=== PATIENT | female | born 1960 | race Caucasian/White ===

== ENCOUNTER 2016-07-12 15:32 | Outpatient (CLI) | payer OTHER ==
--- NOTE | 2016-07-13 17:15 | Mammography Report ---
DIGITAL SCREENING MAMMOGRAM: 07/12/2016 CLINICAL INDICATION: A 56-year-old with history of late childbearing, family history of breast cance r for screening. COMPARISON: 09/2014, 05/2013, 04/2012, 04/2010, 09/2008. TECHNIQUE: Routine CC and MLO projections were obtained of the breasts. FINDINGS: Parenchymal tissue within both breasts is extremely dense, which lowers the sensitivity of mammography; however, there are no dominant masses, suspicious microcalcifications, or secondary sig ns of malignancy. In comparison to the previous studies, there are no significant changes. IMPRESSION: No mammographic evidence of malignancy. PLAN: Screening mammography is recommended annually. BI-RADS category 1 - negative. STANDARD QUALIFYING STATEMENTS 1. This examination was reviewed with the aid of Computed-Aided Detection (CAD). 2. A negative or benign imaging report should not delay biopsy if clinically suspicious findings are present. Consider surgical consultation if warranted. More than 5% of cancers are not identified by i maging. 3. Dense breasts may obscure an underlying neoplasm. JOB #: [id number] EXT JOB #:[id number]
== END 2016-07-12 15:33 | disposition home or self-care (01) ==
LOC: DI 15:32
PROVIDERS: ATTEND Family Medicine
DX: Z12.31 Encounter for screening mammogram for malignant neoplasm of breast (principal); Z80.3 Family history of malignant neoplasm of breast
CPT/HCPCS: 77067

== ENCOUNTER 2017-03-30 10:11 | Outpatient (CLI) | payer OTHER ==
--- NOTE | 2017-03-31 10:03 | DEXA Report ---
DEXA SCAN: 03/30/2017 CLINICAL INDICATION: Osteopenia. TECHNIQUE: Dual energy x-ray absorptiometry (DXA) was performed on a [employer] system. Regions measured are the AP spine, femoral neck, and, if needed, forearm. COMPARISON: None. In accordance with the International Society for Clinical Densitometry (ISCD) guidelines, data from previous exams may be reanalyzed using current recommendations and techniques. This is done to allow a more accurate basis for comparison with the current study. FINDINGS LUMBAR SPINE DATA: REGION BMD (g/cm/cm) T-SCORE Z-SCORE L1 0.901 -1.9 -0.5 L2 1.000 -1.7 -0.3 L3 1.185 -0.1 1.3 L4 1.190 -0.1 1.3 TOTAL 1.078 -0.9 0.5 NOTE: All evaluable vertebrae are used for classification. HIP DATA: REGION BMD (g/cm/cm) T-SCORE Z-SCORE Neck 0.754 -2.0 -0.7 TOTAL 0.814 -1.5 -0.5 NOTE: The femoral neck or total proximal femur, whichever is lowest, is used for classification. IMPRESSION THE WHO CLASSIFICATION BASED ON THE INTERNATIONAL REFERENCE STANDARD: OSTEOPENIA. FRACTURE RISK: INCREASED. RECOMMENDATION: Patients with diagnosis of osteoporosis or osteopenia should have regular bone mineral density assessment. For those eligible for Medicare, routine testing is allowed once every 2 years. Testing frequency can be increased for patients who have rapidly progressing disease or for those who are receiving medical therapy to restore bone mass. COMMENT: World Health Organization (WHO) definitions for osteoporosis and osteopenia: NORMAL BMD: T-score at -1.0 or higher, fracture risk is low. OSTEOPENIA BMD: T-score between -1.0 and -2.5, fracture risk is increased. OSTEOPOROSIS BMD: T-score at -2.5 or lower, fracture risk high. National Osteoporosis Foundation recommends: 1. Obtain adequate dietary calcium (at least 1200 mg per day) and vitamin D (400 -800 international units per day). 2. Participate, as appropriate, in regular weightbearing and muscle- strengthening exercise. 3. Avoid tobacco use and reduce alcohol and caffeine intake. 4. For more detailed information see the website at www.NOF.org. MTDD
== END 2017-03-30 10:12 | disposition home or self-care (01) ==
LOC: DI 10:11
PROVIDERS: ATTEND Naturopath
DX: M85.88 Other specified disorders of bone density and structure, other site (principal)
CPT/HCPCS: 77080

== ENCOUNTER 2018-10-30 18:24 | Outpatient (CLI) | payer OTHER | END 2018-10-30 19:00 | disposition home or self-care (01) | LOC: LAB.R 18:24 | PROVIDERS: ATTEND Family Medicine | DX: R30.0 Dysuria (principal) | CPT/HCPCS: 87086 ==

== ENCOUNTER 2019-02-21 11:05 | Outpatient (CLI) | payer OTHER ==
--- NOTE | 2019-02-21 14:23 | Mammography Report ---
Reason: ROUTINE MAMMO Procedure Date: 02/21/2019 Accession Number: [id number] / [id number] Procedure: YI - Screening Mammo w/Raghu CPT Code: FULL RESULT: EXAM: Screening Mammo w/Raghu DATE: 02/21/2019 11:50 AM CLINICAL HISTORY: Routine screening TECHNIQUE: (B) - Bilateral CC and MLO views were obtained. COMPARISON: 04/21/2010 PARENCHYMAL PATTERN: (VD) - The breasts demonstrate extremely dense parenchyma bilaterally, limiting the sensitivity of mammography. FINDINGS: No significant interval change. There are no suspicious masses, calcifications, or areas of distortion. IMPRESSION: Negative examination. BI-RADS category 1. RECOMMENDATION: (ANNUAL) - Recommend routine annual screening mammography. BI-RADS CATEGORY: (1) - Negative. STANDARD QUALIFYING STATEMENTS: 1. This examination was not reviewed with the aid of Computer-Aided Detection (CAD). 2. A negative or benign imaging report should not preclude biopsy if clinically suspicious findings are present. 3. Dense breasts may obscure an underlying neoplasm. 4. This examination was reviewed with the aid of 3D breast imaging (tomosynthesis).
== END 2019-02-21 11:06 | disposition home or self-care (01) ==
LOC: DI 11:05
PROVIDERS: ATTEND Internal Medicine
DX: Z12.31 Encounter for screening mammogram for malignant neoplasm of breast (principal)
CPT/HCPCS: 77063; 77067

== ENCOUNTER 2019-07-03 21:12 | Outpatient (CLI) | payer OTHER ==
--- NOTE | 2019-07-03 23:05 | XRAY Report ---
Reason: Right knee. Twisted knee while skiing three days ago, now with pa Procedure Date: 07/03/2019 Accession Number: [id number] / [id number] Procedure: XR - Knee 3 View RT CPT Code: Final Report FULL RESULT: EXAM: RIGHT KNEE RADIOGRAPHY EXAM DATE: 07/03/2019 10:03 PM. CLINICAL HISTORY: Right knee. Twisted knee while skiing three days ago, now with pa. COMPARISON: None. TECHNIQUE: 3 views. FINDINGS: Bones: Normal. No fractures or bone lesions. Joints: Mild narrowing of the patellofemoral and medial compartments. No joint effusion. No subluxation. Soft Tissues: Normal. No soft tissue swelling. IMPRESSION: No acute fracture or dislocation. 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 RADIA
== END 2019-07-03 21:13 | disposition home or self-care (01) ==
LOC: DI 21:12
PROVIDERS: ATTEND Internal Medicine
DX: S83.91XA Sprain of unspecified site of right knee, initial encounter (principal); M17.11 Unilateral primary osteoarthritis, right knee

== ENCOUNTER 2020-10-08 10:26 | Day surgery (SDC) | payer OTHER ==
--- OUTSIDE RECORDS SUMMARY | 2020-10-08 10:29 | EXTERNAL MEDICAL SUMMARY RPT | Continuity of Care Document ---
:1960 Demographics Phone Unavailable Preferred Language Maltese Marital Status Unknown Sikh Affiliation Unknown Race Unknown Ethnic Group Unknown Author Organization [place] Address [address] [phone] Phone Care Team Providers Name Role Phone Deven Unavailable Unavailable Allergies Encounters Medications date description facility [id number] Levothyroxine Sodium 0.075 MG Oral Caps [facility] 20200730 liothyronine sodium 0.005 MG Oral Table t [facility] Problems date description facility [id number] Encounter for screening for malignant n eoplasm of [facility] cervix 20200812 Encounter for screening for human papil lomavirus (HPV) [facility] 20200812 Encounter for general adult medical exa mination without [facility] abno Procedures date description facility [id number] General Physician [facility] 20200730 [facility] Results Vital Signs date measurement value source 20200730 weight_standard 121.23 lb 20200730 weight_metric 54.99 kg 20200730 temperature_standard 98.9 F 20200730 temperature_metric 37.17 C 20200730 respiration_rate 16 /min 20200730 height_standard 62 in 20200730 height_metric 157.48 cm 20200730 heart_rate 68 /min 20200730 BP_systolic 100 mm[Hg] [id number] BP_diastolic 46 mm[Hg] 20200730 BMI 22.1 kg/m2 20200812 weight_standard 54.66 lb 20200812 weight_metric 24.79 kg 20200812 temperature_standard 98.2 F 20200812 temperature_metric 36.78 C 20200812 respiration_rate 16 /min 20200812 height_standard 62 in 20200812 height_metric 157.48 cm 20200812 heart_rate 63 /min 20200812 BP_systolic 110 mm[Hg] 20200812 BP_diastolic 56 mm[Hg] 20200812 BMI 22.0 kg/m2
[2020-10-08] MEDS ORDERED: LACTATED RINGERS 1,000 ML IV ONE ×2 (10:41→11:41)
[2020-10-08] MEDS ORDERED: MIDAZOLAM 2 MG/2 ML VIAL ONE ×2 (11:11→11:19)
[2020-10-08] MEDS ORDERED: fentaNYL 250 MCG/5 ML VIAL ONE (11:11)
[2020-10-08] MEDS ORDERED: ONDANSETRON 4 MG/2 ML VIAL ONE (11:11)
[2020-10-08 12:00] VITALS: BP 104/66
== END 2020-10-08 10:27 | disposition home or self-care (01) ==
LOC: SDS 10:26
PROVIDERS: ATTEND Surgery
DX: Z12.11 Encounter for screening for malignant neoplasm of colon (principal); K64.8 Other hemorrhoids
CPT/HCPCS: 45378; J3010; J7120

== ENCOUNTER 2020-10-09 07:59 | Outpatient (CLI) | payer OTHER ==
--- NOTE | 2020-10-10 08:56 | Mammography Report ---
BILATERAL DIGITAL SCREENING MAMMOGRAM 3D/2D: 10/09/2020 CLINICAL: Routine screening. Comparison is made to exams dated: 02/21/2019 mammogram, 07/12/2016 mammogram, 10/02/2014 mammogram, an d 05/23/2013 mammogram - [facility]. The tissue of both breasts is extremely dense, which lowers the sensitivity of mammography. There is a possible 1.1 cm asymmetry with an obscured margin in the right breast anterior depth centr al to the nipple seen on the craniocaudal view only 4.4 cm from the nipple. There is architectural d istortion associated with the asymmetry. No other significant masses, calcifications, or other findings are seen in either breast. IMPRESSION: INCOMPLETE: NEEDS ADDITIONAL IMAGING EVALUATION The possible 1.1 cm asymmetry in the right breast is indeterminate. Additional views with possible u ltrasound are recommended. This exam was interpreted at Station ID: Unknown. NOTE: For mammograms, a report in lay terms will be sent to the patient. Approximately 15% of breast malignancies will not be visualized mammographically. In the management of a palpable breast mass, a negative mammogram must not discourage biopsy of a clinically suspicious lesion. Electronically Signed By: Junito Mclain M.D., jr/eugenie:10/09/2020 09:10:06 Entry: - 10/10/2020 07:01:11 ACR BI-RADS Category 0: Incomplete 3340F PARENCHYMAL PATTERN: (VD) - The breast(s) demonstrate(s) extremely dense parenchyma, limiting the sen sitivity of mammography. BI-RADS CATEGORY: (0) - 0 Unspecified - other [id number] Immediate follow-up LATERALITY: (B)
== END 2020-10-09 08:00 | disposition home or self-care (01) ==
LOC: DI 07:59
DX: Z12.31 Encounter for screening mammogram for malignant neoplasm of breast (principal); R92.8 Other abnormal and inconclusive findings on diagnostic imaging of breast

== ENCOUNTER 2020-10-28 10:32 | Outpatient (CLI) | payer OTHER ==
--- NOTE | 2020-10-29 13:39 | Mammography Report ---
UNILATERAL RIGHT DIGITAL DIAGNOSTIC MAMMOGRAM 3D/2D: 10/28/2020 CLINICAL: Patient returns today to evaluate an architectural distortion in the right breast. Comparison is made to exams dated: 10/09/2020 mammogram, 02/21/2019 mammogram, 07/12/2016 mammogram, mammogram, 05/23/2013 mammogram, and 04/28/2012 mammogram - [facility]. The tissue of right breast is extremely dense, which lowers the sensitivity of mammography. The possible 1.1 cm asymmetry with an indistinct margin in the right breast anterior depth central to the nipple seen on the craniocaudal view only 4.4 cm from the nipple is not reproduced and presumabl y represented superimposed breast tissue. No other significant masses or calcifications are seen in the breast. IMPRESSION: INCOMPLETE: NEEDS ADDITIONAL IMAGING EVALUATION Previously questioned asymmetry in the right breast anterior depth central to the nipple is no longer demonstrated, dissipating with spot compression. An ultrasound is recommended to further evaluate. This exam was interpreted at Station ID: [id number]. NOTE: For mammograms, a report in lay terms will be sent to the patient. Approximately 15% of breast malignancies will not be visualized mammographically. In the management of a palpable breast mass, a negative mammogram must not discourage biopsy of a clinically suspicious lesion. Electronically Signed By: Junito Mclain M.D. jr/:10/28/2020 15:35:09 ACR BI-RADS Category 0: Incomplete 3340F PARENCHYMAL PATTERN: (VD) - The breast(s) demonstrate(s) extremely dense parenchyma, limiting the sen sitivity of mammography. BI-RADS CATEGORY: (0) - 0 Ultrasound [id number] Immediate follow-up LATERALITY: (B)
--- NOTE | 2020-10-29 13:39 | Ultrasound Report ---
LIMITED ULTRASOUND OF RIGHT BREAST: 10/28/2020 CLINICAL: Patient returns today to evaluate an asymmetry in the right breast. Comparison is made to exams dated: 10/28/2020 mammogram, 10/09/2020 mammogram, 02/21/2019 mammogram, mammogram, 10/02/2014 mammogram, and 05/23/2013 mammogram - [facility]. Ultrasound of the right breast 10-2 o'clock region was performed. Smith scale images of the real-time examination were reviewed. Previously questioned asymmetry has no sonographic correlate. No evidence of malignancy. IMPRESSION: NEGATIVE There is no sonographic evidence of malignancy. Return to annual mammogram screening schedule is rec ommended. This exam was interpreted at Station ID: [id number]. Electronically Signed By: Junito Mclain M.D. jr/:10/28/2020 15:35:41 Ultrasound BI-RADS: 1 Negative BI-RADS CATEGORY: (1) - 1 Mammogram [id number] return to screening LATERALITY: (B)
== END 2020-10-28 10:33 | disposition home or self-care (01) ==
LOC: DI 10:32
PROVIDERS: ATTEND Internal Medicine
DX: R92.8 Other abnormal and inconclusive findings on diagnostic imaging of breast (principal)

== ENCOUNTER 2021-02-17 14:26 | Outpatient (CLI) | payer OTHER ==
--- NOTE | 2021-02-17 15:09 | DEXA Report ---
PROCEDURE: Dexa Spine and/or Hip INDICATIONS: POST MENOPAUSAL TECHNIQUE: Dual energy x-ray absorptiometry (DXA) was performed on a [employer] System. Regions measur ed are the AP Spine, femoral neck, and if needed forearm. COMPARISON: 03/30/2017. FINDINGS: Lumbar Spine: Bone Mineral Density 1.064 g/cm/cm,T score -1.0, normal bone density Left Femoral Neck: Bone Mineral Density 0.808 g/cm/cm, T score -1.6, osteopenia (T score greater or equal to -1.0: NORMAL) (T score from -1.1 to -2.4: OSTEOPENIA) (T score less than or equal to -2.5 to: OSTEOPOROSIS) Impression: OSTEOPENIA. Patient is at increased risk for fracture. Patients with diagnosis of osteoporosis or osteopenia should have regular bone mineral density assess ment. For those eligible for Medicare, routine testing is allowed once every 2 years. Testing frequ ency can be increased for patients who have rapidly progressing disease or for those who are receivin g medical therapy to restore bone mass. Reviewed by: Trae Cross MD on 02/17/2021 3:07 PM PDT Approved by: Trae Cross MD on 02/17/2021 3:07 PM PDT Station ID: [id number]
== END 2021-02-17 14:27 | disposition home or self-care (01) ==
LOC: DI 14:26
PROVIDERS: ATTEND Internal Medicine
DX: M85.89 Other specified disorders of bone density and structure, multiple sites (principal); Z78.0 Asymptomatic menopausal state

== ENCOUNTER 2021-03-24 07:51 | Outpatient (CLI) | payer OTHER ==
--- NOTE | 2021-03-24 09:12 | MRI Report ---
PROCEDURE: Knee RT W/O INDICATIONS: UNSPECIFIED INTERNAL DERANGEMENT OF RIGHT KNEE TECHNIQUE: Noncontrast sagittal PD fast spin echo and T2 fast spin echo with fat saturation, sagittal 3-D gradie nt sequence with fat saturation; coronal T1 spin echo and PD fast spin echo with fat saturation, and axial PD fast spin echo with fat saturation through the knee. COMPARISON: None. FINDINGS: MENISCI: Medial meniscus: Abnormal signal extending to the undersurface of the posterior horn and body in keep ing with tear. There is partial extrusion as well as extension of abnormal signal to the periphery. T here is a 4 mm para meniscal cyst adjacent to the body Lateral meniscus: Intact. CRUCIATE LIGAMENTS: Anterior cruciate ligament: Intact. Posterior cruciate ligament: Intact. MEDIAL STRUCTURES: Medial collateral ligament: Intact. Semimembranosus tendon: Intact. Pes anserinus tendons: Intact. Bursal fluid: No bursal fluid. LATERAL STRUCTURES: Lateral collateral ligament appears grossly intact. Biceps femoris tendon appears intact. Iliotibial band within normal limits. Popliteus tendon within normal limits. ANTERIOR STRUCTURES: Mild patellar tendinopathy, with prepatellar and superficial infrapatellar edema. Focal fluid collect ion measuring 2.7 x 0.7 cm anterior to the tibial tuberosity suggestive of bursitis The quadriceps tendon appears intact. Medial and lateral patellofemoral ligaments appear grossly intact. Patellar alignment is normal. Hoffa's fat pad unremarkable. BONES AND CARTILAGE: Bones: No bone marrow contusions or fractures. Medial compartment: Cartilage intact. Lateral compartment: 2 mm focus of near full-thickness cartilage loss involving the posterior nonweig htbearing cartilage with underlying subchondral marrow edema. Patellofemoral compartment: Cartilage intact. JOINT SPACE: No joint effusion. Webster's cyst which measures approximately 3 cm cephalocaudad dimension. No specific evidence of loose body identified. IMPRESSION: Medial meniscal tear involving the body and posterior horn with slight partial extrusion. Associated 4 mm para meniscal cyst Patellar tendinopathy. Focal fluid collection involving the anterior subcutaneous soft tissues at the level of the tibial tuberosity suggest bursitis (although hematoma in the differential). Possible in traluminal debris/blood products. Webster's cyst Mild lateral compartment joint degeneration involving the posterior nonweightbearing cartilage as abo ve Reviewed by: Rick Robertson MD on 03/24/2021 9:10 AM PST Approved by: Rick Robertson MD on 03/24/2021 9:10 AM [facility] Station ID: [id number]
== END 2021-03-24 07:52 | disposition home or self-care (01) ==
LOC: DI 07:51
PROVIDERS: ATTEND Orthopaedic Surgery
DX: S83.241A Other tear of medial meniscus, current injury, right knee, initial encounter (principal); M71.21 Synovial cyst of popliteal space [Baker], right knee; M17.11 Unilateral primary osteoarthritis, right knee

== ENCOUNTER 2021-04-29 09:58 | Outpatient (CLI) | payer OTHER ==
--- NOTE | 2021-04-29 16:38 | Nuclear Medicine Report ---
PROCEDURE: Bone 3-Phase INDICATIONS: RIGHT HIP PAIN RADIOPHARMACEUTICAL: 26.8 mCi Tc-99m MDP IV. TECHNIQUE: Multiple bone scintigrams were obtained after intravenous injection of Tc-99m MDP, including flow, bl ood pool, and delayed images centered to the region of interest. COMPARISON: None available. FINDINGS: A triple phase bone scan was obtained centered to the hips. The flow and blood pool images demonstrate normal vascular activity to lower lumbar spine, pelvis, hips and proximal femurs. Delaye d images demonstrate low grade increased uptake around the hips bilaterally, most likely due to mild degenerative joint disease . IMPRESSION: 1. 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 Common radiographic correlation. 2. No scintigraphic findings to suggest infection, osteonecrosis or acute fracture. If clinical sympt oms persist, MRI is recommended. Reviewed by: Luis Fernando Castro MD on 04/29/2021 4:37 PM PST Approved by: Luis Fernando Castro MD on 04/29/2021 4:37 PM PST Station ID: [id number]
== END 2021-04-29 09:59 | disposition home or self-care (01) ==
LOC: DI 09:58
PROVIDERS: ATTEND Physician Assistant
DX: M16.0 Bilateral primary osteoarthritis of hip (principal)
CPT/HCPCS: 78315

== ENCOUNTER 2023-03-29 08:17 | Outpatient (CLI) | payer OTHER ==
--- NOTE | 2023-03-29 10:57 | DEXA Report ---
PROCEDURE: Dexa Spine and/or Hip INDICATIONS: OSTEOPENIA TECHNIQUE: Dual energy x-ray absorptiometry (DXA) was performed on a [employer] System. Regions measur ed are the AP Spine, femoral neck, and if needed forearm. COMPARISON: 02/17/2021, 03/30/2017 FINDINGS: Lumbar Spine: Bone Mineral Density 1.072 g/cm/cm,T score -0.9. There has been no statistically significant change in bone mineral density since the prior study. Left Femoral Neck: Bone Mineral Density 0.742 g/cm/cm, T score -2.1. Left Hip: Bone Mineral Density 0.812 g/cm/cm,T score -1.6. There has been no statistically significant change i n bone mineral density since the prior study. (T score greater or equal to -1.0: NORMAL) (T score from -1.1 to -2.4: OSTEOPENIA) (T score less than or equal to -2.5 to: OSTEOPOROSIS) Impression: By WHO criteria, this patient has low bone density (osteopenia). No statistical interval change in bone minteral density of the lumbar spine. No statistical interval change in bone minteral density of the hip. Patients with diagnosis of osteoporosis or osteopenia should have regular bone mineral density assess ment. For those eligible for Medicare, routine testing is allowed once every 2 years. Testing frequ ency can be increased for patients who have rapidly progressing disease or for those who are receivin g medical therapy to restore bone mass. Reviewed by: Jeremías Stern on 03/29/2023 10:56 AM PST Approved by: Jeremías Stern on 03/29/2023 10:56 AM PST Station ID: [id number]
== END 2023-03-29 08:18 | disposition home or self-care (01) ==
LOC: DI 08:17
PROVIDERS: ATTEND Internal Medicine
DX: M85.80 Other specified disorders of bone density and structure, unspecified site (principal)

== ENCOUNTER 2023-08-25 09:20 | Outpatient (CLI) | payer OTHER ==
--- NOTE | 2023-08-26 08:07 | Mammography Report ---
BILATERAL DIGITAL SCREENING MAMMOGRAM 3D/2D: 08/25/2023 CLINICAL: Routine screening. Comparison is made to exams dated: 10/28/2020 ultrasound, 10/28/2020 mammogram, 10/09/2020 mammogram, 1 mammogram, 07/12/2016 mammogram, and 10/02/2014 mammogram - [facility]. Both breasts are extremely dense, which lowers the sensitivity of mammography (category d />75% gland ular tissue). No significant masses, calcifications, or other findings are seen in either breast. There has been no significant interval change. IMPRESSION: NEGATIVE There is no mammographic evidence of malignancy. A 1 year screening mammogram is recommended. Based on the Tyrer Cuzick model (a risk assessment model) the patient's lifetime risk is 16.8% and he r 10 year risk is 8.0%. According to the ACR, ACS, and NCCN guidelines, an annual breast MRI exam armand ng with mammogram is recommended if the patient's lifetime risk is 20% or greater. This exam was interpreted at Station ID: [id number]. NOTE: For mammograms, a report in lay terms will be sent to the patient. Approximately 15% of breast malignancies will not be visualized mammographically. In the management of a palpable breast mass, a negative mammogram must not discourage biopsy of a clinically suspicious lesion. Electronically Signed By: Faizan kulkarni/eugenie:08/25/2023 10:16:49 letter sent: No_Letter ACR BI-RADS Category 1: Negative 3341F PARENCHYMAL PATTERN: (VD) - The breast(s) demonstrate(s) extremely dense parenchyma, limiting the sen sitivity of mammography. BI-RADS CATEGORY: (1) - 1 RECOMMENDATION: (ANNUAL) - Recommend routine annual screening mammography. [id number] 1 year screening LATERALITY: (B)
== END 2023-08-25 09:21 | disposition home or self-care (01) ==
LOC: DI.N 09:20
PROVIDERS: ATTEND Internal Medicine
DX: Z12.31 Encounter for screening mammogram for malignant neoplasm of breast (principal); R92.343 Mammographic extreme density, bilateral breasts